=== PATIENT | male | born 1965 | race Two or more races ===

== ENCOUNTER 2018-04-02 11:44 | Emergency (ER) ==
[2018-04-02 11:58] VITALS: BP 152/97; TEMP 97.7; BMI 31.1
--- NOTE | 2018-04-02 12:17 | ED.PDOC ---
General ED Provider: Dr. NUBIA ALEJO Chief Complaint: Hand Pain/Injury Stated Complaint: Lt hand injury: Stated injured lt hand while changing a tire 3 weeks ago. States working on tractor and hit tractor rim with left hand sustatining a injury /wound. States had cleansed wound and applied triple antibiotic--wound worsened and then tried mecuricom without results--then tried peroxide to clean. Still not improving and now the hand is red, blistered and swollen. It seems to worsen after treatment and now involves area 4.5 X 3.0 CM Time Seen by Physician: 12:15 Mode of Arrival: Walk-In Information Source: Patient Exam Limitations: No limitations Nursing and Triage Documentation Reviewed and Agree: Yes Does patient meet sepsis criteria?: No System Inflammatory Response Syndrome: Not Applicable Sepsis Protocol: For patient's 13 years and over: Temp is 96.8 and below OR 101 and greater Pulse >90 BPM Resp >20/minute Acutely Altered Mental Status Are patient's symptoms suggestive of a new infection, such as: -Pneumonia -Skin, Soft Tissue -Endocarditis -UTI -Bone, Joint Infection -Implantable Device -Acute Abdominal Infection -Wound Infection -Meningitis -Blood Stream Catheter Infection -Unknown Musculoskeletal Complaint Exam - Hand/Wrist Complaint/Exam Location of Pain: Reports: Left, Hand (dorsum) Mechanism of Injury: Reports: Trauma Onset/Duration: 3 weeks Symptoms Are: Still present Onset of Pain: Reports: Immediate Initial Severity: Moderate Current Severity: Moderate Location: Reports: Discrete Character: Reports: Aching, Burning Alleviating: Reports: Rest, OTC meds Aggravating: Reports: Movement Associated Signs and Symptoms: Reports: Swelling Related History: Reports: Occupational injury Dominant Hand: Right Related Surgical History: Reports: None Hand/Wrist Findings: Present: Swelling, Erythema, Blisters Tenderness: Present: Metacarpal Compartment Syndrome Risk Factors: Present: Pain Differential Diagnoses: Cellulitis, Abrasion Review of Systems - Review Of Systems Constitutional: Reports: No symptoms Eyes: Reports: No symptoms Ears, Nose, Mouth, Throat: Reports: No symptoms Respiratory: Reports: No symptoms Cardiac: Reports: No symptoms GI: Reports: No symptoms : Reports: No symptoms Musculoskeletal: Reports: No symptoms Skin: Reports: No symptoms Neurological: Reports: No symptoms Endocrine: Reports: No symptoms Hematologic/Lymphatic: Reports: No symptoms All Other Systems: Reviewed and Negative Past Medical History - Past Medical History Previously Healthy: Yes Endocrine: Reports: None Cardiovascular: Reports: None Respiratory: Reports: None Hematological: Reports: None Gastrointestinal: Reports: None Genitourinary: Reports: None Neuro/Psych: Reports: None Musculoskeletal: Reports: None Cancer: Reports: None - Surgical History General Surgical History: Reports: None - Family History Family History: Reports: None - Social History Smoking Status: Current every day smoker, Heavy tobacco smoker Alcohol Screening: Occasionally - Immunizations Tetanus Shot up to Date: No Physical Exam - Physical Exam Appearance: Well-appearing, No pain distress, Well-nourished Eyes: VIKI, EOMI, Conjunctiva clear ENT: Ears normal, Nose normal, Oropharynx normal Respiratory: Airway patent, Breath sounds clear, Breath sounds equal, Respirations nonlabored Cardiovascular: RRR, Pulses normal, No rub, No murmur GI/: Soft, Nontender, No masses, Bowel sounds normal, No Organomegaly Musculoskeletal: Normal strength, ROM intact, No edema, No calf tenderness Skin: Warm, Dry, Normal color Neurological: Sensation intact, Motor intact, Reflexes intact, Cranial nerves intact, Alert, Oriented Psychiatric: Affect appropriate, Mood appropriate Critical Care Note - Critical Care Note Total Time (mins): 60 Course - Course Hematology/Chemistry: 04/02/18 12:34 04/02/18 12:34 Orders, Labs, Meds: Lab Review 04/02/18 04/02/18 04/02/18 12:34 12:34 12:38 WBC 7.84 RBC 5.99 Hgb 17.9 Hct 55.1 H MCV 92.0 MCH 29.9 MCHC 32.5 RDW Coeff of Steve 13.2 Plt Count 219 Immature Gran % (Auto) 0.5 Neut % (Auto) 62.8 Lymph % (Auto) 22.4 Dundy % (Auto) 10.6 H Eos % (Auto) 2.6 Baso % (Auto) 1.1 Immature Gran # (Auto) 0.0 Neut # (Auto) 4.9 Lymph # (Auto) 1.8 Dundy # (Auto) 0.8 Eos # (Auto) 0.2 Baso # (Auto) 0.1 Sodium 141.0 Potassium 4.10 Chloride 106.0 Carbon Dioxide 28.0 Anion Gap 11.10 BUN 16.0 Creatinine 0.90 Estimated GFR (MDRD) 88.00 BUN/Creatinine Ratio 17.77 Glucose 121.0 H Calcium 9.10 Total Bilirubin 0.60 AST 29.0 ALT 28.0 Alkaline Phosphatase 94.0 Total Protein 7.80 Albumin 4.50 Globulin 3.30 Albumin/Globulin Ratio 1.36 Urine Color Urine Clarity Urine pH Ur Specific [place] Urine Protein Urine Glucose (UA) Urine Ketones Urine Blood Urine Nitrite Urine Bilirubin Urine Urobilinogen Ur Leukocyte Esterase Urine Microscopic RBC Urine Microscopic WBC Ur Squamous Epith Cells Urine Bacteria Urine Starch Urine Mucus Urine Sperm Urine Opiates Screen Negative Ur Oxycodone Screen Negative Urine Methadone Screen Negative Ur Propoxyphene Screen Negative Ur Barbiturates Screen Negative U Tricyclic Antidepress Negative Ur Phencyclidine Scrn Negative Ur Amphetamine Screen Negative U Methamphetamines Scrn Negative U Benzodiazepines Scrn Negative Urine Cocaine Screen Negative U Cannabinoids Screen Positive 04/02/18 12:38 WBC RBC Hgb Hct MCV MCH MCHC RDW Coeff of Steve Plt Count Immature Gran % (Auto) Neut % (Auto) Lymph % (Auto) [place] % (Auto) Eos % (Auto) Baso % (Auto) Immature Gran # (Auto) Neut # (Auto) Lymph # (Auto) [place] # (Auto) Eos # (Auto) Baso # (Auto) Sodium Potassium Chloride Carbon Dioxide Anion Gap BUN Creatinine Estimated GFR (MDRD) BUN/Creatinine Ratio Glucose Calcium Total Bilirubin AST ALT Alkaline Phosphatase Total Protein Albumin Globulin Albumin/Globulin Ratio Urine Color Dark Urine Clarity Clear Urine pH 5.5 Ur Specific [place] 1.025 Urine Protein Trace Urine Glucose (UA) Trace Urine Ketones Trace Urine Blood Negative Urine Nitrite Negative Urine Bilirubin 1+ Urine Urobilinogen 0.2 Ur Leukocyte Esterase Negative Urine Microscopic RBC 0-2 Urine Microscopic WBC 0-2 Ur Squamous Epith Cells 0-2 Urine Bacteria 1+ Urine Starch Trace Urine Mucus 1+ Urine Sperm Trace Urine Opiates Screen Ur Oxycodone Screen Urine Methadone Screen Ur Propoxyphene Screen Ur Barbiturates Screen U Tricyclic Antidepress Ur Phencyclidine Scrn Ur Amphetamine Screen U Methamphetamines Scrn U Benzodiazepines Scrn Urine Cocaine Screen U Cannabinoids Screen Orders Category Date Time Status CBC W/ AUTO DIFF Stat LAB 04/02/18 12:34 Completed CMP [COMPREHENSIVE METABOLIC PANEL] Stat LAB 04/02/18 12:34 Completed UA [URINALYSIS C & S IF INDICATED] Stat LAB 04/02/18 12:38 Completed URINE CULTURE Stat LAB 04/02/18 12:38 Completed URINE DRUG SCREEN (RAPID FOR ED) [DRUG SCREEN, URINE, LAB 04/02/18 12:38 Completed RAPID] Stat HAND, LEFT 2 VIEWS Stat RADS 04/02/18 12:43 Completed Vital Signs: Temp Pulse Resp BP Pulse Ox 04/02/18 11:45 97.7 F 111 H 20 152/97 H 94 L Departure - Departure Time of Disposition: 14:05 Disposition: HOME SELF-CARE Discharge Problem: Open wound, hand, Abrasion of hand Instructions: Allergies (ED), Abrasion (ED), Hematoma (ED) Condition: Good Pt referred to PMD for follow-up: Yes (3-5 days) IPMP verified?: No Additional Instructions: Avoid exposure to tape or band aids Follow up pcp in 1 week Dressing changes daily at home Take meds Prescriptions: Doxycycline Hyclate 100 mg PO BID #10 capsule Allergies/Adverse Reactions: Allergies amoxicillin Adverse Reaction (Verified 04/02/18 11:53) aspirin Adverse Reaction (Verified 04/02/18 11:53) Home Medications: Ambulatory Orders Doxycycline Hyclate 100 mg PO BID #10 capsule 04/02/18 Disposition Discussed With: Patient
--- NOTE | 2018-04-02 14:18 | DI ---
EXAM: Two-view left hand COMPARISON: None HISTORY: Trauma and pain FINDINGS: There is no acute fracture or dislocation. Alignment is anatomic. Soft tissues are unrem arkable. Joint spaces are well preserved. There are no unexpected radiodensities. There is no sign ificant degenerative change. IMPRESSION: No acute osseous abnormality
== END 2018-04-02 14:43 | disposition home or self-care (01) ==
LOC: ED 11:44
DX: S61.402A Unspecified open wound of left hand, initial encounter (principal); W22.8XXA Striking against or struck by other objects, initial encounter; F17.210 Nicotine dependence, cigarettes, uncomplicated
CPT/HCPCS: 36415; 80053; 80306; 81001; 85025; 87086; 99283